=== PATIENT | female | born 1990 | race Caucasian/White ===

== ENCOUNTER 2025-07-20 20:28 | Observation (INO) | payer BC ==
[~2025-07-20] VITALS: Ht 167.6 cm; Wt 83.5 kg
[2025-07-20 21:23] LABS: VENOUS BASE EXCESS 0.3 (-2.0-2.0); VENOUS HCO3 21.9 MMOL/L (23.0-27.0); VENOUS O2 SATURATION 78.6 % (60.0-80.0); VENOUS PARTIAL PRESSURE CO2 28.2 mmHg (38.0-50.0); VENOUS PARTIAL PRESSURE O2 36.2 mmHg (30.0-50.0); VENOUS PH 7.509 UNITS (7.330-7.430); VENOUS STANDARD HCO3 24.3 MMOL/L; VENOUS TOTAL CO2 22.8 MMOL/L (24.0-28.0)
[2025-07-20 21:30] LABS: BASO # 0.0 10^3/uL (0.0-0.2); BASO % 0.2 % (0.0-1.0); EOS # 0.0 10^3/uL (0.0-0.5); EOS % 0.1 % (0.0-3.0); LYMPH # 1.1 10^3/uL (1.5-5.0); LYMPH % 6.4 % (24.0-44.0); MONO # 0.5 10^3/uL (0.0-0.8); MONO % 2.6 % (2.0-8.0); NEUTROPHILS # 15.6 10^3/uL (1.5-8.5); NEUTROPHILS % 90.2 % (36.0-66.0); PLATELET COUNT, AUTOMATED 348 10^3/uL (150-450)
[2025-07-20 21:51] LABS: OSMOLALITY SERUM 290 MOSM/KG (275-295)
[2025-07-20 21:52] LABS: ALT/SGPT 18 U/L (7.0-40); AST/SGOT 21 U/L (<34); CALCIUM LEVEL 8.8 MG/DL (8.5-10.1); CARBON DIOXIDE LEVEL 22 MMOL/L (20-31); CHLORIDE LEVEL 99 MMOL/L (98-107); CREATININE FOR GFR 0.69 MG/DL (0.55-1.30); GLOMERULAR FILTRATION RATE > 90.0 (>60); POTASSIUM SERUM 4.0 MMOL/L (3.5-5.1); SODIUM LEVEL 135 MMOL/L (136-145)
[2025-07-20 21:54] LABS: ACETONE/KETONE 1.01 MMOL/L (0.02-0.27)
[2025-07-20 21:56] LABS: ESTIMATED AVERAGE GLUCOSE 143.0 MG/DL (60-110)
[2025-07-20 22:06] LABS: KETONE, URINE AUTO RFX 2+ mg/dL (NEGATIVE); LEUKOCYTE ESTERASE UR AUTO RFX NEGATIVE (NEGATIVE); MUCUS, URINE RFX SMALL (NEGATIVE); NITRITE, URINE AUTO RFX NEGATIVE (NEGATIVE); RBC, URINE AUTO RFX 2 /HPF (0-3); SQUAM EPITHELIAL CELL UR AURFX 16 /HPF (0-6); WBC, URINE AUTO RFX 1 /HPF (0-3)
[2025-07-20] MEDS: NS (Normal Saline) 0.9% 1,000 ML IV ONE (22:40)
[2025-07-20] MEDS: HumuLIN R (REGULAR) INSULIN (NovoLIN R) **100 U/ML** PER UNIT IV ONE (22:45)
[2025-07-21] MEDS: HALOPERIDOL LACTATE 5 MG/ML VIAL IV ONE (00:39)
[2025-07-21] MEDS ORDERED: DEXTROSE 50% 50 ML SYRINGE IV PRN (02:00)
[2025-07-21] MEDS ORDERED: GLUCAGON INJ 1 MG VIAL SC PRN (02:00)
[2025-07-21] MEDS ORDERED: MOM 30 ML SUSPENSION UDC PO PRN ×2 (02:00→12:20)
[2025-07-21] MEDS ORDERED: GLUCOSE 4 GM CHEW PO PRN (02:00)
[2025-07-21] MEDS: INSULIN LISPRO (NovoLOG) PER UNIT SC SCH (02:59)
[2025-07-21] MEDS: NS (Normal Saline) 0.9% 1,000 ML IV SCH (03:28)
[2025-07-21] MEDS: ONDANSETRON 4MG 2ML VIAL IV PRN ×2 (04:14→18:28)
[2025-07-21 04:46] LABS: PLATELET COUNT, AUTOMATED 320 10^3/uL (150-450)
[2025-07-21] MEDS: ACETAMINOPHEN 325 MG TAB PO PRN (04:47)
[2025-07-21 05:08] LABS: CALCIUM LEVEL 7.8 MG/DL (8.5-10.1); CARBON DIOXIDE LEVEL 25 MMOL/L (20-31); CHLORIDE LEVEL 103 MMOL/L (98-107); CREATININE FOR GFR 0.67 MG/DL (0.55-1.30); GLOMERULAR FILTRATION RATE > 90.0 (>60); MAGNESIUM LEVEL 2.0 MG/DL (1.8-2.4); POTASSIUM SERUM 4.0 MMOL/L (3.5-5.1); SODIUM LEVEL 137 MMOL/L (136-145)
[2025-07-21 05:17] LABS: AMPHETAMINES LEVEL URINE NEGATIVE (NEGATIVE); BARBITURATES URINE NEGATIVE (NEGATIVE); BENZODIAZEPINES URINE NEGATIVE (NEGATIVE); CANNABINOIDS URINE NEGATIVE (NEGATIVE); COCAINE METABOLITE URINE NEGATIVE (NEGATIVE); METHADONE URINE NEGATIVE (NEGATIVE); OPIATES URINE NEGATIVE (NEGATIVE); PHENCYCLIDINE URINE NEGATIVE (NEGATIVE)
[2025-07-21] MEDS: KETOROLAC 30 MG/ML 1 ML VIAL IV ONE (06:14)
[2025-07-21] MEDS: MOM 30 ML SUSPENSION UDC PO SCH (06:37)
[2025-07-21] MEDS ORDERED: PILL CUTTER 1 EACH XX ONE (07:45)
[2025-07-21 07:54] LABS: CK-MB VALUE MASS < 1.0 NG/ML (<3.6)
[2025-07-21 07:55] LABS: CPK CREATINE PHOSPHOKINASE 208 U/L (34-145)
[2025-07-21 08:05] VITALS: BP 127/76; O2SAT 95
[2025-07-21] MEDS: SENNA 8.6 MG TAB PO SCH (08:07)
[2025-07-21] MEDS: BISACODYL 10 MG SUPP PR SCH (08:08)
[2025-07-21] MEDS: PANTOPRAZOLE 40MG VIAL IV SCH (08:08)
[2025-07-21] MEDS: LOSARTAN 25 MG TAB PO SCH (08:08)
[2025-07-21] MEDS ORDERED: ONDA-282 PO (10:15)
[2025-07-21] MEDS ORDERED: INSU100I59 SQ (10:15)
[2025-07-21] MEDS ORDERED: SEMA0.5P SQ (10:15)
[2025-07-21] MEDS ORDERED: INSU100I26 SQ (10:15)
[2025-07-21] MEDS ORDERED: HOME MED LIST COMPLETE! XX SCH (10:20)
[2025-07-21 10:30] VITALS: BP 160/98; TEMP 97.8; O2SAT 97
[2025-07-21 10:32] VITALS: BP 162/96
[2025-07-21] MEDS: MAALOX 30 ML SUSP *UDC PO PRN (10:54)
[2025-07-21] MEDS: ONDANSETRON 4MG 2ML VIAL IV SCH (11:08)
[2025-07-21] MEDS ORDERED: PILL CUTTER 1 EACH XX PRN (11:10)
[2025-07-21] MEDS: ACETAMINOPHEN *IV* 1,000 MG in IV 1 EA IV ONE (12:16)
[2025-07-21 12:30] VITALS: BP 156/90
[2025-07-21] MEDS ORDERED: ISOVUE-370 76% 100 ML VIAL As Ordered ONE (12:57)
[2025-07-21] MEDS: ENOXAPARIN 40 MG/0.4 ML SYRINGE (J1650 PER 10MG) SC SCH (13:17)
[2025-07-21] MEDS: SUCRALFATE SUSP 1GM/10ML UD PO ONE (13:18)
[2025-07-21] MEDS: FAMOTIDINE 20 MG TAB PO ONE (13:18)
[2025-07-21] MEDS: BISACODYL 10 MG SUPP PR PRN (14:43)
[2025-07-21 16:51] VITALS: BP 126/63; TEMP 98.3; O2SAT 96
[2025-07-21] MEDS: PROCHLORPERAZINE 10MG/2ML VIAL IV ONE (17:01)
[2025-07-21 20:00] VITALS: BP 154/81; TEMP 98.9; O2SAT 98
[2025-07-22] VITALS: BP 164/94; TEMP 98.8; O2SAT 98
[2025-07-22 06:00] VITALS: BP 142/74; TEMP 98.9; O2SAT 97
[2025-07-22 06:51] LABS: BASO # 0.0 10^3/uL (0.0-0.2); BASO % 0.3 % (0.0-1.0); EOS # 0.0 10^3/uL (0.0-0.5); EOS % 0.1 % (0.0-3.0); LYMPH # 1.9 10^3/uL (1.5-5.0); LYMPH % 16.3 % (24.0-44.0); MONO # 0.6 10^3/uL (0.0-0.8); MONO % 5.5 % (2.0-8.0); NEUTROPHILS # 9.0 10^3/uL (1.5-8.5); NEUTROPHILS % 77.5 % (36.0-66.0); PLATELET COUNT, AUTOMATED 282 10^3/uL (150-450)
[2025-07-22 07:11] LABS: CALCIUM LEVEL 8.1 MG/DL (8.5-10.1); CARBON DIOXIDE LEVEL 24 MMOL/L (20-31); CHLORIDE LEVEL 101 MMOL/L (98-107); CREATININE FOR GFR 0.64 MG/DL (0.55-1.30); GLOMERULAR FILTRATION RATE > 90.0 (>60); POTASSIUM SERUM 3.5 MMOL/L (3.5-5.1); SODIUM LEVEL 137 MMOL/L (136-145)
[2025-07-22] MEDS: FLEET ENEMA PR ONE (08:46)
[2025-07-22] MEDS: ACETAMINOPHEN *IV* 1,000 MG in IV 1 EA IV ONE (08:59)
[2025-07-22] MEDS ORDERED: MOM 30 ML SUSPENSION UDC PO SCH (09:00)
[2025-07-22] MEDS: MIRALAX *UNIT DOSE* 17 GM PACKET PO SCH (10:52)
[2025-07-22 12:00] VITALS: BP 139/87; TEMP 99.7; O2SAT 98
[2025-07-22] MEDS: INSULIN LISPRO (NovoLOG) PER UNIT SC ONE (15:43)
[2025-07-22 16:44] VITALS: BP 155/92; TEMP 98.7; O2SAT 97
[2025-07-22 20:00] VITALS: BP 162/90; TEMP 99.3; O2SAT 98
[2025-07-23] VITALS (7 sets, daily range): BP systolic 139–161; BP diastolic 84–104; TEMP 97.2–100.3; O2SAT 96–98
[2025-07-23] MEDS: MAGNESIUM CITRATE 300 ML BTL PO ONE (08:10)
[2025-07-23] MEDS: LOSARTAN 25 MG TAB PO SCH (08:11)
[2025-07-23] MEDS: ACETAMINOPHEN *IV* 1,000 MG in IV 1 EA IV ONE (08:11)
[2025-07-23 08:35] LABS: PLATELET COUNT, AUTOMATED 287 10^3/uL (150-450)
[2025-07-23 09:00] LABS: CALCIUM LEVEL 7.7 MG/DL (8.5-10.1); CARBON DIOXIDE LEVEL 26 MMOL/L (20-31); CHLORIDE LEVEL 101 MMOL/L (98-107); CREATININE FOR GFR 0.68 MG/DL (0.55-1.30); GLOMERULAR FILTRATION RATE > 90.0 (>60); POTASSIUM SERUM 3.2 MMOL/L (3.5-5.1); SODIUM LEVEL 136 MMOL/L (136-145)
[2025-07-23] MEDS: MORPHINE 4 MG/ML 1 ML VIAL IV ONE (11:11)
[2025-07-23] MEDS: KCL 10MEQ/100ML SWI (KRUN) 10 MEQ in IV 1 EA IV SCH ×2 (11:11→23:19)
[2025-07-23] MEDS: ONDANSETRON 4MG 2ML VIAL IV PRN (14:25)
[2025-07-23] MEDS: LACTULOSE 20 GM/30 ML SYRUP UDC PO ONE (15:44)
[2025-07-23] MEDS: PROCHLORPERAZINE 10MG/2ML VIAL IV ONE (15:44)
[2025-07-23] MEDS: INSULIN LISPRO (NovoLOG) PER UNIT SC SCH (17:52)
[2025-07-23] MEDS ORDERED: POTASSIUM CHLORIDE 10MEQ SR TABLET PO ONE (18:30)
[2025-07-23] MEDS: POTASSIUM CHLORIDE 10% LIQ 20MEQ/15ML UDC PO ONE (18:44)
[2025-07-23] MEDS ORDERED: LanTUS (INSULIN GLARGINE INJ) 1 UNITS/0.01 ML SC SCH (21:00)
[2025-07-23] MEDS: LanTUS (INSULIN GLARGINE INJ) 1 UNITS/0.01 ML SC SCH (22:30)
[2025-07-24] VITALS: BP 160/84; TEMP 99.7; O2SAT 96
[2025-07-24] MEDS: INSULIN LISPRO (NovoLOG) PER UNIT SC SCH (00:24)
[2025-07-24 04:49] VITALS: BP 154/98; TEMP 99.9; O2SAT 97
[2025-07-24 07:24] LABS: BASO # 0.0 10^3/uL (0.0-0.2); BASO % 0.3 % (0.0-1.0); EOS # 0.0 10^3/uL (0.0-0.5); EOS % 0.2 % (0.0-3.0); LYMPH # 3.0 10^3/uL (1.5-5.0); LYMPH % 31.9 % (24.0-44.0); MONO # 0.8 10^3/uL (0.0-0.8); MONO % 8.2 % (2.0-8.0); NEUTROPHILS # 5.5 10^3/uL (1.5-8.5); NEUTROPHILS % 59.2 % (36.0-66.0); PLATELET COUNT, AUTOMATED 316 10^3/uL (150-450)
[2025-07-24 07:48] LABS: CALCIUM LEVEL 8.1 MG/DL (8.5-10.1); CARBON DIOXIDE LEVEL 24 MMOL/L (20-31); CHLORIDE LEVEL 103 MMOL/L (98-107); CREATININE FOR GFR 0.73 MG/DL (0.55-1.30); GLOMERULAR FILTRATION RATE > 90.0 (>60); POTASSIUM SERUM 3.8 MMOL/L (3.5-5.1); SODIUM LEVEL 136 MMOL/L (136-145)
[2025-07-24 08:22] VITALS: BP 162/82; TEMP 98.1; O2SAT 98
[2025-07-24 08:35] VITALS: BP 162/82
[2025-07-24] MEDS: PANTOPRAZOLE 40MG TAB PO SCH (08:47)
[2025-07-24] MEDS: ONDANSETRON 4MG ORAL DISINTEGRATING TAB PO PRN (08:47)
[2025-07-24 12:34] VITALS: BP 155/96; TEMP 97.5; O2SAT 98
[2025-07-24] MEDS: INSULIN LISPRO (NovoLOG) PER UNIT SC ONE (13:06)
[2025-07-24 16:29] VITALS: BP 158/98; TEMP 97.7; O2SAT 98
[2025-07-24] MEDS ORDERED: LOSA-527 PO (17:12)
[2025-07-24] MEDS ORDERED: ENTER DRUG NAME HERE (PATIENT'S OWN MED) SQ SA SCH (20:00)
== END 2025-07-24 17:56 | disposition home or self-care (01) ==
LOC: M ED 20:28 → M ED INP 20:29 → M PED 07-21 10:24 → M MSPAV 07-23 09:06
PROVIDERS: ADMIT Student in an Organized Health Care Education/Training Program; ATTEND Student in an Organized Health Care Education/Training Program
DX: R11.2 Nausea with vomiting, unspecified (principal); R10.816 Epigastric abdominal tenderness; I16.0 Hypertensive urgency; K59.00 Constipation, unspecified; E87.3 Alkalosis; D72.829 Elevated white blood cell count, unspecified; E10.9 Type 1 diabetes mellitus without complications; R07.9 Chest pain, unspecified; E87.6 Hypokalemia; I10 Essential (primary) hypertension; R63.8 Other symptoms and signs concerning food and fluid intake; R00.0 Tachycardia, unspecified; Z88.0 Allergy status to penicillin; Z88.8 Allergy status to other drugs, medicaments and biological substances; Z79.4 Long term (current) use of insulin
CPT/HCPCS: 36415; 74018; 74177; 76830; 76857; 80047; 80048; 80076; 80307; 81001; 82010; 82550; 82553; 82803; 83036; 83605; 83690; 83735; 83930; 84132; 84145; 84484; 85025; 85027; 87040; 93005; 93041; 93976; 94760; 96365; 96366; 96372; 96375; 96376; 99285; J0131; J0780; J1630; J1650; J1815; J1885; J2405; J2470; J2765; Q9967